=== PATIENT | male | born 1970 | race Caucasian/White ===

== ENCOUNTER 2021-10-04 17:01 | Emergency (ER) | payer SELFPAY ==
[~2021-10-04] VITALS: Ht 170.2 cm; Wt 78.0 kg
[2021-10-04] MEDS ORDERED: HYDROCODONE/ACETAMINOPHEN 5/325MG TABLET PO ONE (17:30)
[2021-10-04] MEDS ORDERED: CEFAZOLIN 1000MG PREMIX 50 ML IV ONE (19:15)
[2021-10-04] MEDS ORDERED: CEFAZOLIN 1000MG PREMIX 50 ML IV NR (20:00)
[2021-10-04] MEDS ORDERED: CEPH500T MT (20:40)
[2021-10-04 21:37] VITALS: BP 166/89
== END 2021-10-04 21:38 | disposition home or self-care (01) ==
LOC: ER 17:18
DX: S68.613A Complete traumatic transphalangeal amputation of left middle finger, initial encounter (principal); X58.XXXA Exposure to other specified factors, initial encounter; Y93.89 Activity, other specified; Y92.89 Other specified places as the place of occurrence of the external cause; Y99.8 Other external cause status
CPT/HCPCS: 73130; 96365; 99284; J0690; Z7610